=== PATIENT | female | born 1995 | race African-American/Black ===

== ENCOUNTER 2021-01-16 14:34 | Emergency (ER) | payer SELFPAY ==
[~2021-01-16] VITALS: Ht 162.6 cm; Wt 81.6 kg
[2021-01-16] MEDS ORDERED: ACETAMINOPHEN 325 MG TAB PO NR (16:45)
[2021-01-16 19:03] VITALS: BP 146/95
== END 2021-01-16 18:50 | disposition home or self-care (01) ==
LOC: ER 17:44
DX: U07.1 COVID-19 (principal); R50.9 Fever, unspecified
CPT/HCPCS: 71045; 87400; 99282; U0002

== ENCOUNTER 2022-08-20 19:38 | Emergency (ER) | payer SELFPAY ==
[~2022-08-20] VITALS: Ht 162.6 cm; Wt 81.6 kg
[2022-08-20] MEDS ORDERED: AZITHROMYCIN250 MG PO (20:54)
[2022-08-20] MEDS ORDERED: MEDROL4 M2 PO (20:54)
== END 2022-08-20 20:58 | disposition home or self-care (01) ==
LOC: ER 19:44
DX: J40 Bronchitis, not specified as acute or chronic (principal); R09.81 Nasal congestion; Z20.822 Contact with and (suspected) exposure to COVID-19
CPT/HCPCS: 71045; 99283; U0002

== ENCOUNTER 2022-10-26 13:39 | Emergency (ER) | payer OTHER, SELFPAY ==
[~2022-10-26] VITALS: Ht 162.6 cm; Wt 81.6 kg
[~2022-10-26 13:39] MED LIST: AZITHROMYCIN250 MG PO; MEDROL4 M2 PO
[2022-10-26] MEDS ORDERED: KETOROLAC TROMETHAMINE 30 MG/ML VIAL IM STA (15:57)
[2022-10-26 16:18] VITALS: O2SAT 99
[2022-10-26] MEDS ORDERED: IBUPROFEN600 MG PO (16:39)
== END 2022-10-26 16:54 | disposition home or self-care (01) ==
LOC: ER 14:18
DX: M25.511 Pain in right shoulder (principal); X50.1XXA Overexertion from prolonged static or awkward postures, initial encounter; Y92.89 Other specified places as the place of occurrence of the external cause; I10 Essential (primary) hypertension
CPT/HCPCS: 73030; 99283; J1885